=== PATIENT | male | born 1980 | race Two or more races ===

== ENCOUNTER 2025-03-07 22:42 | Inpatient (IN) | payer MEDICAID, MEDICARE ==
[~2025-03-07] VITALS: Ht 180.3 cm; Wt 87.6 kg
--- NOTE | 2025-03-07 23:24 | ED.PDOC ---
History of Present Illness HPI Comments 45 y/o M presents with c/o abdominal distension, with associated shortness of breath, and left foot pain. Patient is a poor historian. He reports a notable history of nonmedicated DM and HTN, fatty liver, and ESRD w/HD T//WED. Patient states on needing another 'tap' to his abdomen for 'fluids,' again, after last receiving one at [facility] 2 weeks ago, where they extracted 3.5L of ascites. He denies any abdominal pain, nausea, vomiting, diarrhea, urinary symptoms, chest pain, or further associated symptoms. Chief Complaint: Abdominal Pain Time Seen by MD: 23:00 Reviewed Notes: Nurses Notes, Medications, Allergies Allergies: Coded Allergies: Penicillins (Verified Allergy, Unknown, UNKNOWN, 03/08/25) Information Source: Patient Mode of Arrival: Wheelchair Severity: Moderate Timing: Hours Duration: Since onset Prehospital treatment: None Review of Systems: REVIEW OF SYSTEMS: No fever, no chills, or fatigue HEENT: No sore throat, no earache, no congestion, no neck pain. Cardiac: No chest pain. No palpitations. Lungs: Shortness of breath, no cough. GI: Abdominal distention. No nausea, no vomiting, no diarrhea, no constipation, no abdominal pain : No dysuria, frequency, or urgency. No hematuria. Musculoskeletal: Chronic left foot pain. No joint pain , no joint swelling, no extremity edema. Skin: No rash, no itching. Neuro: No headache, no dizziness, no weakness Vital Signs Vital Signs Date Time Temp Pulse Resp B/P (MAP) Pulse Ox O2 Delivery O2 Flow Rate FiO2 03/07/25 23:00 98.4 92 18 171/97 (121) 98 98.4 Physical Exam General: Awake, alert and oriented. No acute distress. Skin: Skin in warm, dry and intact. Appropriate color for ethnicity. HEENT: The head is normocephalic and atraumatic. Conjunctivae are clear without exudates or hemorrhage. Sclera is non-icteric. EOM are intact. No signs of nystagmus. Eyelids are normal in appearance without swelling or lesions. Oral mucosa is pink and moist Neck: The neck is supple with normal range of motion. No JVD. Cardiac: Heart rate and rhythm are normal. No murmurs, gallops, or rubs are auscultated. Respiratory: No signs of respiratory distress. Lung sounds are clear in all lobes bilaterally without rales, rhonchi, or wheezes. Abdominal: Abdomen is soft, non-tender without distention, guarding or rigidity. Bowel sounds are present and normoactive in all four quadrants. Extremities: Large callus on left lateral foot without surrounding erythema; tissues appeared necrotic. Otherwise, remaining upper and lower extremities are atraumatic in appearance without deformity or edema. Neurological: The patient is awake, alert and oriented to person, place, and time with normal speech. Speech is clear. There is no facial asymmetry. Psychiatric: Appropriate mood and affect. Good judgement and insight. Past Medical History PAST MEDICAL HISTORY: Anxiety, DM, ESRD (Hemodialysis on Wednesday, , and Wednesday), HTN, Liver (Fatty liver) Surgical History (Other): Cyst incision and drainage Testicular torsion related surgery Family History Family History: Unknown Social History Smoker: Non-Smoker Alcohol: Denies ETOH Use Drugs: Denies Drug Use Lives In: Home Was a procedure done? Was a procedure done?: No Differential Dx Considerations may include: Differential diagnoses considered include: Abdominal aortic aneurysm, MO, esophageal rupture, intestinal obstruction, mesenteric ischemia, perforated viscus or solid organ rupture, CHF with hepatomegaly, pneumonia, abscess, appendicitis, biliary disease, diverticulitis, gastritis, gastroenteritis, hepatitis, hernia, inflammatory bowel disease, pancreatitis, peptic ulcer disease, urinary tract infection, ureteral colic, constipation, GERD, irritable syndrome, abdominal wall pain, nonspecific abdominal pain, herpes zoster, nephrolithiasis. [ ]Also ruptured ectopic , ovarian torsion/cyst, tubo- ovarian abscess, PID, endometriosis, mittleschmerz. X-Ray, Labs, Meds, VS Vital Signs Date Time Temp Pulse Resp B/P (MAP) Pulse Ox O2 Delivery O2 Flow Rate FiO2 03/07/25 23:00 98.4 92 18 171/97 (121) 98 98.4 Lab Test 03/08/25 01:55 03/08/25 00:15 03/07/25 23:15 Range/Units Phosphorus Level 6.3 H 2.4-5.1 mg/dL Troponin I High Sensitivity 34 34 37 </=54 ng/L White Blood Count 7.2 4.4-10.8 10^3/uL Red Blood Count 4.10 L 4.5-5.90 10^6/uL Hemoglobin 10.2 L 13.5-17.5 g/dL Hematocrit 30.9 L 41.0-53.0 % Mean Corpuscular Volume 75.5 L 80.0-100.0 fL Mean Corpuscular Hemoglobin 24.8 L 28.0-32.0 pg Mean Corpuscular Hemoglobin Concent 32.8 32.0-36.0 g/dL Red Cell Distribution Width 16.8 H 11.8-14.3 % Platelet Count 188 140-450 10^3/uL Mean Platelet Volume 7.2 6.9-10.8 fL Neutrophils (%) (Auto) 65.4 37.0-80.0 % Lymphocytes (%) (Auto) 18.6 10.0-50.0 % Monocytes (%) (Auto) 12.2 H 0.0-12.0 % Eosinophils (%) (Auto) 2.9 0.0-7.0 % Basophils (%) (Auto) 0.9 0.0-2.0 % Neutrophils # (Auto) 4.7 1.6-8.6 10 ^3/uL Lymphocytes # (Auto) 1.3 0.4-5.4 10 ^3/uL Monocytes # (Auto) 0.9 0-1.3 10 ^3/uL Eosinophils # (Auto) 0.2 0-0.8 10 ^3/uL Basophils # (Auto) 0.1 0-0.2 10 ^3/uL Nucleated Red Blood Cells 0.0 % Prothrombin Time 13.2 H 9.3-11.8 sec Prothrombin Time INR 1.28 H 0.9-1.15 Sodium Level 143 136-145 mmol/L Potassium Level 5.1 3.5-5.1 mmol/L Chloride Level 98 98-107 mmol/L Carbon Dioxide Level 32 H 20-31 mmol/L Anion Gap 13 5-15 Blood Urea Nitrogen 67 H 9-23 mg/dL Creatinine 8.95 H 0.700-1.30 mg/dL Glomerular Filtration Rate Calc 7 >90 mL/min BUN/Creatinine Ratio 7.5 L 10.0-20.0 Serum Glucose 133 H 74-106 mg/dL Calcium Level 8.4 L 8.7-10.4 mg/dL Magnesium Level 2.5 1.6-2.6 mg/dL Total Bilirubin 0.6 0.2-1.0 mg/dL Aspartate Amino Transferase (AST) 13 13-40 U/L Alanine Aminotransferase (ALT) < 9 7-40 U/L Alkaline Phosphatase 108 46-116 U/L B-Type Natriuretic Peptide 1701.15 0-100 pg/mL Total Protein 7.5 5.7-8.2 g/dL Albumin 4.4 3.2-4.8 g/dL Lipase 52 12-53 U/L Time of 1ST Reevaluation: 23:30 Reevaluation 1ST: Unchanged Patient Education/Counseling: Diagnosis, Treatment Family Education/Counseling: No Family Present Departure 1 Departure Time of Disposition: 01:37 Impression: Primary Impression: Ascites Additional Impressions: Abdominal pain End stage renal disease on dialysis Disposition: ADMITTED INPATIENT Condition: Stable Comments 45-year-old male with end-stage renal disease on dialysis, cardiomegaly, ascites. We will admit for further evaluation including echocardiogram, IR paracentesis Critical Care Note Critical Care Time?: No Stability Stability form required: No Heart Score Heart Score: Heart Score Response (Comments) Value History N/A 0 EKG N/A 0 Age N/A 0 Risk Factors N/A 0 Troponin N/A 0 Total 0 I personally scribed for JOSE MCGRATH MD ([email or web address]) on 03/07/25 at 23:24. Electronically submitted by Paul Ledesma ([email or web address]). JOSE MCGRATH MD Mar 07, 2025 23:24
[2025-03-07 23:25] LABS: Basophils # (auto) 0.1 10 ^3/uL (0-0.2); Eosinophils # (auto) 0.2 10 ^3/uL (0-0.8); Hemoglobin 10.2 g/dL (13.5-17.5); Mean Corpuscular Hemoglobin 24.8 pg (28.0-32.0); Mean Corpuscular Hgb Conc. 32.8 g/dL (32.0-36.0); Neutrophils # (auto) 4.7 10 ^3/uL (1.6-8.6)
[2025-03-07 23:27] LABS: Basophils % (auto) 0.9 % (0.0-2.0); Eosinophils % (auto) 2.9 % (0.0-7.0); Hematocrit 30.9 % (41.0-53.0); Lymphocytes # (auto) 1.3 10 ^3/uL (0.4-5.4); Lymphocytes % (auto) 18.6 % (10.0-50.0); Mean Corpuscular Volume 75.5 fL (80.0-100.0); Monocytes # (auto) 0.9 10 ^3/uL (0-1.3); Monocytes % (auto) 12.2 % (0.0-12.0); Neutrophils % (auto) 65.4 % (37.0-80.0); Platelet Count (auto) 188 10^3/uL (140-450); Red Cell Distribution Width 16.8 % (11.8-14.3); White Blood Cell 7.2 10^3/uL (4.4-10.8)
--- NOTE | 2025-03-07 23:32 | DVH ---
EXAM: XY CHEST XRAY 1 VIEW CLINICAL HISTORY: Shortness of breath TECHNIQUE: Single AP view of the chest WID: COMPARISON: None FINDINGS: Lines and tubes: None Chest: Mild cardiomegaly and mild prominence of the pulmonary vasculature. No pleural effusion, pneumothorax, or consolidation. The osseous structures are grossly intact. IMPRESSION: Mild cardiomegaly and prominence of the pulmonary vasculature.
[2025-03-07 23:38] LABS: INR 1.28 (0.9-1.15); Prothrombin Time 13.2 sec (9.3-11.8)
[2025-03-07 23:40] LABS: Anion Gap 13 (5-15)
[2025-03-07 23:41] LABS: Calcium 8.4 mg/dL (8.7-10.4); Carbon Dioxide 32 mmol/L (20-31); Chloride 98 mmol/L (98-107); Potassium 5.1 mmol/L (3.5-5.1); Sodium 143 mmol/L (136-145)
[2025-03-07 23:46] LABS: Albumin 4.4 g/dL (3.2-4.8); Alkaline Phosphatase 108 U/L (46-116); BUN/Creatinine Ratio 7.5 (10.0-20.0); Magnesium 2.5 mg/dL (1.6-2.6); Total Protein 7.5 g/dL (5.7-8.2)
[2025-03-07 23:47] LABS: Alanine Aminotransferase < 9 U/L (7-40); Aspartate Aminotransferase 13 U/L (13-40); Bilirubin, Total 0.6 mg/dL (0.2-1.0); Blood Urea Nitrogen 67 mg/dL (9-23); Glucose 133 mg/dL (74-106)
[2025-03-08 00:09] LABS: Lipase 52 U/L (12-53)
--- NOTE | 2025-03-08 00:46 | DVH ---
INDICATION: Abdominal pain, rule out ascites, rule out cirrhosis TECHNIQUE: Multiple real-time sonographic images were obtained of the right upper quadrant. COMPARISON: None FINDINGS: The liver demonstrates diffusely echogenic and coarsened echotexture without focal mass les ions. The liver measures 20.6 cm. Normal hepatopetal portal flow identified. No evidence of pleural e ffusion. Abdominal ascites. There is no intrahepatic or extrahepatic ductal dilatation. The common duct measures 0.4 cm. The gallbladder is without evidence of stone or sludge. Probable gallbladder polyp. The gallbladder w all measures 0.3 cm and is within normal limits. Negative sonographic bills's sign. The right kidney measures 8.5 cm. The right kidney is normal in contour, size, and shape. The echogen icity is normal. There is no hydronephrosis. The pancreas is not well visualized due to overlying bowel gas. IMPRESSION: 1. Hepatomegaly and hepatic steatosis. 2. Probable gallbladder polyp. 3. Ascites.
[2025-03-08] MEDS ORDERED: NITROGLYCERIN 0.4 MG SL TAB SL PRN (04:00)
[2025-03-08] MEDS ORDERED: MORPHINE SULFATE INJ 2 MG/ml SYRG IV PRN (04:00)
[2025-03-08 04:10] VITALS: PULSE 82; RESP 14; O2SAT 98
[2025-03-08] MEDS: PANTOPRAZOLE 40 MG/10 ML VIAL INJ IV ONE (05:52)
[2025-03-08] MEDS: CARVEDILOL 3.125 MG TAB PO ONE (05:52)
--- NOTE | 2025-03-08 06:19 | DVHHPRES ---
History of Present Illness Resident Creating Document: MOMO WOLFF RESIDENT History of Present Illness Patient is a 45-year-old male with a past medical history of end-stage renal disease on dialysis (Wednesday at [facility] dialysis), hypertension, fatty liver presented to the ED with a chief complaint of abdom inal distention. Patient reports he had massive abdominal distention which was drained about 2-1/2 weeks ago at [facility] following which he was discharged. He reports the abdominal distention started area, radiating but now he wanted to get earlier evaluation so that he does not reach a point where he feels short of breath. Patient denied any chest pain. Reported mild shortness of breath but he is saturating more than 95% on room air. Past medical history: As per HPI Past surgical history: Testicular surgery, cyst incision and drainage Social history: Patient denies smoking, alcohol, drug use and lives at home Home medications: Hydralazine 25 t.i.d. with the patient is not taking, carvedilol 6.25 mg b.i.d., sevelamer Review of Systems Review of Systems Patient seen and examined at the bedside Denies any chest pain, abdominal pain, nausea or vomiting Reports shortness of breath minimal Allergies: Coded Allergies: Penicillins (Verified Allergy, Unknown, UNKNOWN, 03/08/25) Medications Current Medications Medications Dose Ordered Sig/Kaylie Route Start Time Stop Time Status Last Admin Dose Admin Morphine Sulfate 2 mg Q30M PRN IV 03/08/25 04:00 Nitroglycerin 0.4 mg Q5MINP PRN SL 03/08/25 04:00 Carvedilol 6.25 mg Q12HR PO 03/08/25 10:00 Pantoprazole Sodium 40 mg DAILY IV 03/09/25 10:00 Sevelamer HCl 1,600 mg TIDWM PO 03/08/25 08:00 Exam Vital Signs Vital Signs Date Time Temp Pulse Resp B/P (MAP) Pulse Ox O2 Delivery O2 Flow Rate FiO2 03/08/25 04:10 82 14 98 Room Air* 0 21 21 03/08/25 04:09 98.3 164/93 (116) 98.3 Exam Gen - mild conjunctival pallor, no icterus, no cyanosis, no clubbing, no LAD, no edema . Skin - Patients skin is warm and dry. HEENT - normocephalic, atraumatic, moist mucous membranes. Neck - full ROM, no LAD, no JVD Pulmonary - B/L equal breath sounds, no crackles, no wheezing, no stridor. cardiovascular - regular S1,S2 heard, no added sounds, no murmurs heard. peripheral pulses normal radial 2+, pedal 2+. capillary refill normal <2 secs. GI - soft, nontender abdomen, no guarding or rebound tenderness. no hepatospleenomegaly. Bowel sounds normoactive. Positive shifting dullness Neurological - Patient is A/O X 3 . Bilateral upper extremity strength 5/5, bilateral lower extremity strength 5/5, no facial droop, normal speech, no tremor, no sensory deficiets. Labs/Xrays Labs Test 03/08/25 01:55 03/07/25 23:15 Range/Units Phosphorus Level 6.3 H 2.4-5.1 mg/dL Troponin I High Sensitivity 34 </=54 ng/L White Blood Count 7.2 4.4-10.8 10^3/uL Red Blood Count 4.10 L 4.5-5.90 10^6/uL Hemoglobin 10.2 L 13.5-17.5 g/dL Hematocrit 30.9 L 41.0-53.0 % Mean Corpuscular Volume 75.5 L 80.0-100.0 fL Mean Corpuscular Hemoglobin 24.8 L 28.0-32.0 pg Mean Corpuscular Hemoglobin Concent 32.8 32.0-36.0 g/dL Red Cell Distribution Width 16.8 H 11.8-14.3 % Platelet Count 188 140-450 10^3/uL Mean Platelet Volume 7.2 6.9-10.8 fL Neutrophils (%) (Auto) 65.4 37.0-80.0 % Lymphocytes (%) (Auto) 18.6 10.0-50.0 % Monocytes (%) (Auto) 12.2 H 0.0-12.0 % Eosinophils (%) (Auto) 2.9 0.0-7.0 % Basophils (%) (Auto) 0.9 0.0-2.0 % Neutrophils # (Auto) 4.7 1.6-8.6 10 ^3/uL Lymphocytes # (Auto) 1.3 0.4-5.4 10 ^3/uL Monocytes # (Auto) 0.9 0-1.3 10 ^3/uL Eosinophils # (Auto) 0.2 0-0.8 10 ^3/uL Basophils # (Auto) 0.1 0-0.2 10 ^3/uL Nucleated Red Blood Cells 0.0 % Prothrombin Time 13.2 H 9.3-11.8 sec Prothrombin Time INR 1.28 H 0.9-1.15 Sodium Level 143 136-145 mmol/L Potassium Level 5.1 3.5-5.1 mmol/L Chloride Level 98 98-107 mmol/L Carbon Dioxide Level 32 H 20-31 mmol/L Anion Gap 13 5-15 Blood Urea Nitrogen 67 H 9-23 mg/dL Creatinine 8.95 H 0.700-1.30 mg/dL Glomerular Filtration Rate Calc 7 >90 mL/min BUN/Creatinine Ratio 7.5 L 10.0-20.0 Serum Glucose 133 H 74-106 mg/dL Calcium Level 8.4 L 8.7-10.4 mg/dL Magnesium Level 2.5 1.6-2.6 mg/dL Total Bilirubin 0.6 0.2-1.0 mg/dL Aspartate Amino Transferase (AST) 13 13-40 U/L Alanine Aminotransferase (ALT) < 9 7-40 U/L Alkaline Phosphatase 108 46-116 U/L B-Type Natriuretic Peptide 1701.15 0-100 pg/mL Total Protein 7.5 5.7-8.2 g/dL Albumin 4.4 3.2-4.8 g/dL Lipase 52 12-53 U/L Assessment/Plan Assessment/Plan Acute abdominal pain Mild abdominal ascites Hepatic steatosis and hepatomegaly Coagulopathy - abdominal ultrasound shows hepatomegaly and hepatic steatosis with a normal hepatopetal portal blood flow, abdominal ascites is seen - liver function tests normal - as patient currently does not have any symptoms of shortness of breaths, might not need drainage - SBP less likely from physical exam and patient does not have any fever End-stage renal disease on hemodialysis Hyperphosphatemia Microcytic hypochromic anemia likely due to CKD - consulted Dr. Jeaneth quiñonez - patient gets dialysis on Wednesday - sevelamer 1600 mg t.i.d Hypertensive heart disease with possible diastolic heart failure - on carvedilol 6.25 b.i.d. - at home patient is also on 25 mg hydralazine t.i.d. which he was not taking in the last few weeks - chest x-ray shows mild cardiomegaly with pulmonary vascular congestion PUD prophylaxis: Protonix DVT prophylaxis: Currently held Goals of care discussed with the patient for over 27 minutes. Full code Time spent: 41 minutes Plan discussed with Dr. Martinez Plan discussed with: Patient My Orders Orders - MOMO WOLFF Procedure Category Date Status Time Admit ADMIT 03/08/25 Transmitted 03:55 Morphine Sulfate PHA 03/08/25 In Process Injection 04:00 Oxygen By Nasal RT 03/08/25 Transmitted Cannula 03:55 Stat Ekg For Chest CR 03/08/25 In Process Pain 03:55 Notify Md Of Changes CR 03/08/25 In Process From Base 03:55 Personal Trainer For CR 03/08/25 In Process 24 Hours 03:55 Emergency Dysrhythmia CR 03/08/25 In Process Protocol 03:55 Nitroglycerin PHA 03/08/25 In Process Sublingual (Ntrostat 04:00 Rhythm Strips Once CR 03/08/25 In Process Every Shift 03:55 Carvedilol Tablet PHA 03/08/25 In Process (Coreg Tablet) 10:00 *Dr. Jeaneth Quiñonez -Da CONS 03/08/25 Transmitted Ita 03:55 Pantoprazole PHA 03/09/25 In Process (Protonix) 10:00 Complete Blood Count LAB 03/08/25 Logged 06:00 Basic Metabolic Panel LAB 03/08/25 Logged 06:00 Sevelamer (Renagel) PHA 03/08/25 In Process 08:00 Date of Service: Mar 08, 2025 Billing Provider: REN MARTINEZ MD Common Visit Codes: [id number] INP/OBS CARE (HIGH) Secondary Visit Codes: [id number] CARE PLAN 30 MINUTES MOMO WOLFF RESIDENT Mar 08, 2025 06:19
[2025-03-08 06:56] LABS: Anion Gap 15 (5-15); Carbon Dioxide 26 mmol/L (20-31); Potassium 4.5 mmol/L (3.5-5.1); Sodium 139 mmol/L (136-145)
[2025-03-08 06:59] LABS: Chloride 98 mmol/L (98-107)
[2025-03-08 07:02] LABS: BUN/Creatinine Ratio 6.8 (10.0-20.0)
[2025-03-08 07:03] LABS: Blood Urea Nitrogen 64 mg/dL (9-23); Glucose 121 mg/dL (74-106)
[2025-03-08 07:05] LABS: % Iron Saturation 9.1 % (20-55)
[2025-03-08 07:06] LABS: Basophils # (auto) 0 10 ^3/uL (0-0.2); Basophils % (auto) 0.7 % (0.0-2.0); Eosinophils # (auto) 0.3 10 ^3/uL (0-0.8); Eosinophils % (auto) 4.3 % (0.0-7.0); Hematocrit 31.4 % (41.0-53.0); Hemoglobin 10.2 g/dL (13.5-17.5); Lymphocytes # (auto) 1.5 10 ^3/uL (0.4-5.4); Lymphocytes % (auto) 22.3 % (10.0-50.0); Mean Corpuscular Hemoglobin 24.5 pg (28.0-32.0); Mean Corpuscular Hgb Conc. 32.4 g/dL (32.0-36.0); Mean Corpuscular Volume 75.6 fL (80.0-100.0); Monocytes # (auto) 0.7 10 ^3/uL (0-1.3); Neutrophils # (auto) 4.2 10 ^3/uL (1.6-8.6); Neutrophils % (auto) 61.7 % (37.0-80.0); Nucleated Red Blood Cells % 0.1 %; Platelet Count (auto) 170 10^3/uL (140-450); Red Blood Cells 4.16 10^6/uL (4.5-5.90); White Blood Cell 6.8 10^3/uL (4.4-10.8)
[2025-03-08 08:28] VITALS: BP 154/92; PULSE 77; RESP 11; TEMP 98; O2SAT 97
[2025-03-08] MEDS: SEVELAMER 800 MG TAB PO SCH (08:59)
[2025-03-08] MEDS: CARVEDILOL 3.125 MG TAB PO SCH (09:00)
[2025-03-08 13:00] VITALS: BP 147/87; PULSE 71; RESP 11; TEMP 98.1; O2SAT 96
[2025-03-08 17:18] VITALS: BP 149/97; PULSE 72; RESP 18; TEMP 97.3; O2SAT 100
[2025-03-08 20:00] VITALS: PULSE 74; RESP 19; O2SAT 100
--- NOTE | 2025-03-08 20:27 | DVHINCON2 ---
DATE OF CONSULTATION: 03/08/2025 CONSULTING PHYSICIAN: Dr. Kasper. REASON FOR CONSULTATION: Management of dialysis. HISTORY OF PRESENT ILLNESS: The patient comes to the emergency room complaining of worsening fluid retention in the abdomen. He is one of our chronic dialysis patients who undergoes treatments on Wednesday, , and Wednesday. He did not go for his dialysis today. He says that a few weeks ago, he had a large volume paracentesis at another hospital. This time, he has been developing reaccumulation of the fluid and he is starting to feel short of breath, so he decided to come to the hospital. He is being admitted for paracentesis and Gastroenterology evaluation. I am being consulted to handle the dialysis treatment. REVIEW OF SYSTEMS: Otherwise unremarkable. PAST MEDICAL HISTORY: As stated above, significant for liver disease, fatty liver, possibly cirrhosis with ascites. He has a history of end-stage renal disease, anemia, hyperparathyroidism. MEDICATIONS AT HOME: Included hydralazine, carvedilol, sevelamer. SOCIAL HISTORY: The patient denies smoking cigarettes or drinking alcohol. FAMILY HISTORY: Noncontributory. PHYSICAL EXAMINATION: VITAL SIGNS: Blood pressure is 149/97, heart rate 72, respirations 18, temperature 97.3. GENERAL: The patient is an adult gentleman who appears to be chronically ill, in no acute distress. Alert and oriented x 3. HEENT: Unremarkable. NECK: No jugular venous distention. No palpable thyroid or lymphadenopathy. LUNGS: Clear to auscultation. CARDIOVASCULAR: Reveals regular rate. There is 2/6 systolic murmur in all auscultatory areas. ABDOMEN: Soft, distended. There is ascites. I could not palpate organomegaly. EXTREMITIES: Show no clubbing, cyanosis, no edema. NEUROLOGIC: Nonfocal. LABORATORY FINDINGS: His sodium is 139, potassium 4.5, bicarbonate 26, BUN 64, creatinine 9, hemoglobin 10.2. ASSESSMENT AND PLAN: * End-stage renal disease with no electrolyte imbalances. * Anemia of renal disease. Hemoglobin is at target range. * Hypertension. Blood pressure seems to be relatively well controlled. * Recurrent ascites. Plan is to do a therapeutic and diagnostic paracentesis. I will schedule his dialysis treatment for tomorrow. We will follow him closely. Thank you for the consultation. MD MOR Alexander/LESLY TID: [id number] RECEIPT: [id number]
[2025-03-08 21:00] VITALS: BP 154/96; PULSE 78; RESP 19; TEMP 97.7; O2SAT 100
--- NOTE | 2025-03-08 21:13 | DVHPNRES ---
Progress Note Date Seen: Mar 08, 2025 Resident Creating Document: TEA LOPEZ RESDIENT Medical Necessity Reason Pt with a Central, PICC or Fol: No Subjective Review of Systems Patient is a 45-year-old male with a past medical history of end-stage renal disease on dialysis (Wednesday at [facility] dialysis), hypertension, fatty liver presented to the ED with a chief complaint of abdominal distention. Patient reports he had massive abdominal distention which was drained about 2-1/2 weeks ago at [facility] following which he was discharged. He reports the abdominal distention started area, radiating but now he wanted to get earlier evaluation so that he does not reach a point where he feels short of breath. Patient denied any chest pain. Reported mild shortness of breath but he is saturating more than 95% on room air. Past medical history: As per HPI Past surgical history: Testicular surgery, cyst incision and drainage Social history: Patient denies smoking, alcohol, drug use and lives at home Home medications: Hydralazine 25 t.i.d. with the patient is not taking, carvedilol 6.25 mg b.i.d., sevelamer Patient seen and examined at the bedside. Patient is still complaining of abdominal discomfort, shortness of bed, and mild case discomfort 8 Patient reports: No new complaints, Feels better Changes from previous H/P or p: Changes Objective vital signs Vital Sign Date Time Temp Pulse Resp B/P (MAP) Pulse Ox O2 Delivery O2 Flow Rate FiO2 03/08/25 17:18 97.3 72 18 149/97 (114) 100 97.3 03/08/25 16:20 Room Air* 0 21 medications Current Medications Medications Dose Ordered Sig/Kaylie Route Start Time Stop Time Status Last Admin Dose Admin Carvedilol 6.25 mg Q12HR PO 03/08/25 10:00 03/08/25 09:00 6.25 MG Pantoprazole Sodium 40 mg DAILY IV 03/09/25 10:00 Sevelamer HCl 1,600 mg TIDWM PO 03/08/25 08:00 03/08/25 17:55 1,600 MG Examination General Appearance: Alert, Oriented X3, Cooperative, No acute distress HEENT: Atraumatic, PERRLA, EOMI, Mucous membrane moist/pink Respiratory: Bilateral lower zone crackles Cardiovascular: Distended abdomen, with positive shifting dullness Abdominal: Normal bowel sounds, Soft, No tenderness, No hepatospenomegaly, No masses Extremities: No clubbing, No cyanosis, No edema, Normal pulses, No tenderness/swelling Skin: No rashes, No breakdown, No significant lesion Neuro: Normal gait, Normal speech, Strength at 5/5 X4 ext, Normal tone, Sensation intact, Cranial nerves 3-12 NL, Reflexes 2+ Psych/Mental Status: Mental status NL, Mood NL laboratory and microbiology Laboratory Tests 03/08/25 06:10 Test 03/08/25 06:10 Range/Units Serum Glucose 121 H 74-106 mg/dL Labs and/or images reviewed: Labs reviewed by me, Image(s) reviewed by me Problem List/Assessment/Plan Problem List/Assessment/Plan Acute on chronic systolic heart failure, likely due to volume/ESRD ESRD, on maintenance hemodialysis (Tuesdays//Wednesday) Diabetes type 2 Mild anemia, likely due to ESRD * EKGs shows, normal sinus is T-wave T-wave changes * ultrasound shows hepatomegaly hepatic steatosis, ascites Plan/recommendation: Consulted nephrology, for dialysis Continue Protonix, carvedilol, and sevelamer Telemetry DIET: Renal diet DVT PROPHYLAXIS: Heparin CODE STATUS: Goal of care discussed for more than 18 minutes, full code DISPOSITION: Telemetry Patient's status and plan discussed with the patient. Case discussed with Dr. Alcaraz. Plan discussed with: Patient, Other My Orders My Orders Orders - TEA LOPEZ Procedure Category Date Status Time Electrocardigram EKG 03/08/25 Logged 09:16 Renal Specific DIET 03/08/25 Transmitted Diet(Renal) Lunch Drug Screen LAB 03/08/25 Logged 11:13 Date of Service: Mar 08, 2025 Billing Provider: YANDEL ALCARAZ MD Common Visit Codes: [id number] INP/OBS CARE(HIGH) TEA LOPEZ RESDIENT Mar 08, 2025 21:13 YANDEL ALCARAZ MD Mar 13, 2025 20:46
[2025-03-09] VITALS (10 sets, daily range): BP systolic 125–159; BP diastolic 79–97; PULSE 71–80; RESP 16–20; TEMP 97.5–98.2; O2SAT 97–100
[2025-03-09 07:18] LABS: Anion Gap 14 (5-15); Carbon Dioxide 27 mmol/L (20-31); Sodium 137 mmol/L (136-145)
[2025-03-09 07:19] LABS: Basophils # (auto) 0 10 ^3/uL (0-0.2); Basophils % (auto) 0.8 % (0.0-2.0); Eosinophils # (auto) 0.3 10 ^3/uL (0-0.8); Eosinophils % (auto) 4.6 % (0.0-7.0); Hematocrit 29.8 % (41.0-53.0); Hemoglobin 9.9 g/dL (13.5-17.5); Lymphocytes # (auto) 1.1 10 ^3/uL (0.4-5.4); Mean Corpuscular Hemoglobin 24.9 pg (28.0-32.0); Neutrophils % (auto) 65.1 % (37.0-80.0); Red Blood Cells 3.98 10^6/uL (4.5-5.90)
[2025-03-09 07:21] LABS: Lymphocytes % (auto) 18.8 % (10.0-50.0); Mean Corpuscular Hgb Conc. 33.3 g/dL (32.0-36.0); Mean Corpuscular Volume 74.9 fL (80.0-100.0); Monocytes # (auto) 0.6 10 ^3/uL (0-1.3); Monocytes % (auto) 10.7 % (0.0-12.0); Neutrophils # (auto) 3.8 10 ^3/uL (1.6-8.6); Platelet Count (auto) 164 10^3/uL (140-450); Red Cell Distribution Width 16.5 % (11.8-14.3); White Blood Cell 5.9 10^3/uL (4.4-10.8)
[2025-03-09 07:24] LABS: BUN/Creatinine Ratio 7.9 (10.0-20.0)
[2025-03-09 07:45] LABS: Blood Urea Nitrogen 92 mg/dL (9-23); Chloride 96 mmol/L (98-107); Glucose 117 mg/dL (74-106); Potassium 5.7 mmol/L (3.5-5.1)
[2025-03-09 08:21] LABS: Urine Bacteria None Seen /hpf (None Seen); Urine Blood TRACE /uL (Negative); Urine Clarity Clear (Clear); Urine Color Light-Yellow (Yellow); Urine Protein, UAD 3+ (Negative); Urine Specific Gravity 1.012 (1.001-1.035); Urine Squamous Epithelial Cell FEW /hpf (<5); Urine Urobilinogen Normal (Negative); Urine WBC 1 /HPF (0-3)
[2025-03-09 08:30] LABS: Amphetamine Screen, Urine Neg (NEGATIVE); Barbiturate Scree,Urine Neg (NEGATIVE); Benzodiazephine Screen, Urine Neg (NEGATIVE); Cannabinoid Screen, Urine Neg (NEGATIVE); Cocaine Screen, Urine Neg (NEGATIVE); Opiate Scree,Urine Neg (NEGATIVE); Phencyclidine Screen, Urine Neg (NEGATIVE)
[2025-03-09] MEDS: PANTOPRAZOLE 40 MG/10 ML VIAL INJ IV SCH (10:00)
[2025-03-09] MEDS: FUROSEMIDE 40 MG/4 ML VIAL IV ONE (10:07)
[2025-03-09] MEDS: CALCIUM GLUC 1,000mg/50ml-NS 50 ML IV ONE (10:09)
[2025-03-09] MEDS: SODIUM ZIRCONIUM CYCL 10 GM PAK PO ONE (10:10)
--- NOTE | 2025-03-09 10:20 | DVHPN2 ---
Progress Note - Dictate Date Seen: Mar 09, 2025 Has the PT tested + for MRSA If YES, has PT been informed?: No Medical Necessity Reason Pt with a Central, PICC or Fol: No Subjective Feels weak No new complaints vital signs Vital Sign Date Time Temp Pulse Resp B/P (MAP) Pulse Ox O2 Delivery O2 Flow Rate FiO2 03/09/25 10:07 152/87 03/09/25 09:19 98.2 72 18 99 98.2 03/08/25 20:00 Room Air* 0 21 Total Intake and Output 03/08/25 03/08/25 03/09/25 15:00 23:00 07:00 Intake Total 118 ml 900 ml Balance 118 ml 900 ml medications Current Medications Medications Dose Ordered Sig/Kaylie Route Start Time Stop Time Status Last Admin Dose Admin Carvedilol 6.25 mg Q12HR PO 03/08/25 10:00 03/08/25 21:41 6.25 MG Pantoprazole Sodium 40 mg DAILY IV 03/09/25 10:00 Sevelamer HCl 1,600 mg TIDWM PO 03/08/25 08:00 03/08/25 17:55 1,600 MG objective GENERAL: The patient is an adult gentleman who appears to be chronically ill, in no acute distress. Alert and oriented x 3. HEENT: Unremarkable. NECK: No jugular venous distention. No palpable thyroid or lymphadenopathy. LUNGS: Clear to auscultation. CARDIOVASCULAR: Reveals regular rate. There is 2/6 systolic murmur in all auscultatory areas. ABDOMEN: Soft, distended. There is ascites. I could not palpate organomegaly. EXTREMITIES: Show no clubbing, cyanosis, no edema. NEUROLOGIC: Nonfocal. laboratory and microbiology Laboratory Tests 03/09/25 06:02 Test 03/09/25 06:02 Range/Units Serum Glucose 117 H 74-106 mg/dL Problem List ASSESSMENT AND PLAN: * End-stage renal disease with no electrolyte imbalances. * Anemia of renal disease. Hemoglobin is at target range. * Hypertension. Blood pressure seems to be relatively well controlled. * Recurrent ascites. Plan is to do a therapeutic and diagnostic paracentesis. HD today Plan discussed with: Patient NYDIA CATES MD Mar 09, 2025 10:20
[2025-03-09] MEDS: ALBUTEROL SULF 2.5 MG/0.5ML(0.5%) NEB SOLN NEB ONE (10:33)
[2025-03-09] MEDS: SODIUM CHL 0.9% 1000 ML BAG XX ONE (17:22)
--- NOTE | 2025-03-09 21:44 | DVHPNRES ---
Progress Note Date Seen: Mar 10, 2025 Resident Creating Document: TEA LOPEZ LINDA Has the PT tested + for MRSA If YES, has PT been informed?: No Medical Necessity Reason Pt with a Central, PICC or Fol: No Subjective Review of Systems Patient seen and examined at the bedside. Patient is feeling better since admission. Objective vital signs Vital Sign Date Time Temp Pulse Resp B/P (MAP) Pulse Ox O2 Delivery O2 Flow Rate FiO2 03/09/25 21:29 97.9 80 18 159/97 (117) 99 97.9 03/09/25 10:34 Room Air* 0 21 Total Intake and Output 03/08/25 03/08/25 03/09/25 15:00 23:00 07:00 Intake Total 118 ml 900 ml Balance 118 ml 900 ml medications Current Medications Medications Dose Ordered Sig/Kaylie Route Start Time Stop Time Status Last Admin Dose Admin Carvedilol 6.25 mg Q12HR PO 03/08/25 10:00 03/08/25 21:41 6.25 MG Pantoprazole Sodium 40 mg DAILY IV 03/09/25 10:00 Sevelamer HCl 1,600 mg TIDWM PO 03/08/25 08:00 03/08/25 17:55 1,600 MG Examination General Appearance: Alert, Oriented X3, Cooperative, No acute distress HEENT: Atraumatic, PERRLA, EOMI, Mucous membrane moist/pink Respiratory: Bilateral lower zone crackles Cardiovascular: Distended abdomen, with positive shifting dullness Abdominal: Normal bowel sounds, Soft, No tenderness, No hepatospenomegaly, No masses Extremities: No clubbing, No cyanosis, No edema, Normal pulses, No tenderness/swelling Skin: No rashes, No breakdown, No significant lesion Neuro: Normal gait, Normal speech, Strength at 5/5 X4 ext, Normal tone, Sensation intact, Cranial nerves 3-12 NL, Reflexes 2+ Psych/Mental Status: Mental status NL, Mood NL laboratory and microbiology Laboratory Tests 03/09/25 06:02 Test 03/09/25 06:02 Range/Units Serum Glucose 117 H 74-106 mg/dL Labs and/or images reviewed: Labs reviewed by me, Image(s) reviewed by me Problem List/Assessment/Plan Problem List/Assessment/Plan Acute on chronic systolic heart failure, likely due to volume/ESRD ESRD, on maintenance hemodialysis (Tuesdays//Wednesday) Diabetes type 2 Mild anemia, likely due to ESRD * EKGs shows, normal sinus is T-wave T-wave changes * ultrasound shows hepatomegaly hepatic steatosis, ascites Plan/recommendation: Consulted nephrology, performed dialysis today, taken out 3.5 L Paracentesis performed, drain 250 mL Continue Protonix, carvedilol, and sevelamer Telemetry DIET: Renal diet DVT PROPHYLAXIS: Heparin CODE STATUS: Goal of care discussed for more than 18 minutes, full code DISPOSITION: Telemetry Patient's status and plan discussed with the patient. Case discussed with Dr. Alcaraz. Plan discussed with: Patient, Other (RN) My Orders My Orders Orders - TEA LOPEZ Procedure Category Date Status Time Apply: [facility] 03/09/25 In Process 11:24 Date of Service: Mar 10, 2025 Billing Provider: YANDEL ALCARAZ MD Common Visit Codes: [id number] INP/OBS CARE(HIGH) TEA LOPEZ RESDIFERCHO Mar 09, 2025 21:44 YANDEL ALCARAZ MD Mar 13, 2025 21:02
[2025-03-10] VITALS (9 sets, daily range): BP systolic 124–160; BP diastolic 65–98; PULSE 71–76; RESP 16–18; TEMP 36.6; O2SAT 97–99
--- NOTE | 2025-03-10 00:40 | DVHDSRES ---
Discharge Summary Date of Admission Resident Creating Document: TEA LOPEZ RESDIENT Mar 08, 2025 at 03:55 Date of Discharge: Mar 10, 2025 Labs/Diagnostic Data: Laboratory Results Test 03/09/25 07:45 03/09/25 07:05 03/09/25 06:02 03/08/25 06:10 Urine Color Light-yellow (Yellow) Urine Clarity Clear (Clear) Urine pH 8.0 (5.0-9.0) Urine Specific [place] 1.012 (1.001-1.035) Urine Protein 3+ (Negative) Urine Ketones Negative (Negative) Urine Blood Trace /uL (Negative) Urine Nitrite Negative (Negative) Urine Bilirubin Negative (Negative) Urine Urobilinogen Normal mg/dL (Negative) Urine Leukocyte Esterase Negative /uL (Negative) Urine RBC 2 /hpf (0 - 3) Urine Microscopic WBC 1 /HPF (0-3) Urine Squamous Epithelial Cells Few /hpf (<5) Urine Bacteria None seen /hpf (None Seen) Urine Glucose 3+ mg/dL (Normal) Urine Opiates Screen Neg (NEGATIVE) Urine Fentanyl Screen Neg (NEGATIVE) Urine Barbiturates Screen Neg (NEGATIVE) Urine Phencyclidine Screen Neg (NEGATIVE) Urine Amphetamines Screen Neg (NEGATIVE) Urine Benzodiazepines Screen Neg (NEGATIVE) Urine Cocaine Screen Neg (NEGATIVE) Urine Cannabinoids Screen Neg (NEGATIVE) White Blood Count 5.9 10^3/uL (4.4-10.8) Red Blood Count 3.98 10^6/uL (4.5-5.90) Hemoglobin 9.9 g/dL (13.5-17.5) Hematocrit 29.8 % (41.0-53.0) Mean Corpuscular Volume 74.9 fL (80.0-100.0) Mean Corpuscular Hemoglobin 24.9 pg (28.0-32.0) Mean Corpuscular Hemoglobin Concent 33.3 g/dL (32.0-36.0) Red Cell Distribution Width 16.5 % (11.8-14.3) Platelet Count 164 10^3/uL (140-450) Mean Platelet Volume 7.6 fL (6.9-10.8) Neutrophils (%) (Auto) 65.1 % (37.0-80.0) Lymphocytes (%) (Auto) 18.8 % (10.0-50.0) Monocytes (%) (Auto) 10.7 % (0.0-12.0) Eosinophils (%) (Auto) 4.6 % (0.0-7.0) Basophils (%) (Auto) 0.8 % (0.0-2.0) Neutrophils # (Auto) 3.8 10 ^3/uL (1.6-8.6) Lymphocytes # (Auto) 1.1 10 ^3/uL (0.4-5.4) Monocytes # (Auto) 0.6 10 ^3/uL (0-1.3) Eosinophils # (Auto) 0.3 10 ^3/uL (0-0.8) Basophils # (Auto) 0 10 ^3/uL (0-0.2) Nucleated Red Blood Cells 0.0 % Sodium Level 137 mmol/L (136-145) Potassium Level 5.7 mmol/L (3.5-5.1) Chloride Level 96 mmol/L (98-107) Carbon Dioxide Level 27 mmol/L (20-31) Anion Gap 14 (5-15) Blood Urea Nitrogen 92 mg/dL (9-23) Creatinine 11.69 mg/dL (0.700-1.30) Glomerular Filtration Rate Calc 5 mL/min (>90) BUN/Creatinine Ratio 7.9 (10.0-20.0) Serum Glucose 117 mg/dL (74-106) Calcium Level 8.0 mg/dL (8.7-10.4) Iron Level 30 ug/dL (65-175) Total Iron Binding Capacity 330 ug/dL (250-425) Percent Iron Saturation 9.1 % (20-55) Ferritin 28.1 ng/mL (22-322) Test 03/08/25 01:55 03/07/25 23:15 Phosphorus Level 6.3 mg/dL (2.4-5.1) Troponin I High Sensitivity 34 ng/L (</=54) Prothrombin Time 13.2 sec (9.3-11.8) Prothrombin Time INR 1.28 (0.9-1.15) Magnesium Level 2.5 mg/dL (1.6-2.6) Total Bilirubin 0.6 mg/dL (0.2-1.0) Aspartate Amino Transferase (AST) 13 U/L (13-40) Alanine Aminotransferase (ALT) < 9 U/L (7-40) Alkaline Phosphatase 108 U/L (46-116) B-Type Natriuretic Peptide 1701.15 pg/mL (0-100) Total Protein 7.5 g/dL (5.7-8.2) Albumin 4.4 g/dL (3.2-4.8) Lipase 52 U/L (12-53) Other Laboratory Tests 03/09/25 06:02 Brief Hx & Hospital Course: Patient is a 45-year-old male with a past medical history of end-stage renal disease on dialysis (Wednesday at [facility]), hypertension, fatty liver presented to the ED with a chief complaint of abdominal distention. Patient reports he had massive abdominal distention which was drained about 2-1/2 weeks ago at [facility] following which he was discharged. He reports the abdominal distention started area, radiating but now he wanted to get earlier evaluation so that he does not reach a point where he feels short of breath. Patient denied any chest pain. Reported mild shortness of breath but he is saturating more than 95% on room air. Past medical history: As per HPI Past surgical history: Testicular surgery, cyst incision and drainage Social history: Patient denies smoking, alcohol, drug use and lives at home Home medications: Hydralazine 25 t.i.d. with the patient is not taking, carvedilol 6.25 mg b.i.d., sevelamer Hospital course: Patient was admitted at the line of possible systolic heart failure and volume overload/ascites. Nephrology consulted, performed the analysis and took out 3.5 L. ultrasound mediated paracentesis performed, and drained 250 mL. Home medication including sevelamer and carvedilol were continued during hospitalization. During hospital course electrolyte abnormalities/hypokalemia were treated medically. On 03/10/2025, the patient was feeling better since admission. Abdominal discomfort, shortness of breaths and chest discomfort improved. Discharge plan discussed with the patient and discharged home. Discharge plan: Follow up with the PCP within 1 week of the discharge Follow up with the Nephrology and maintenance hemodialysis Continue home meds Condition at Discharge: Good Final Diagnosis/Problems List Possible Acute systolic heart failure, likely due to volume/ESRD ESRD, on maintenance hemodialysis (Tuesdays//Wednesday) Diabetes type 2 Mild anemia, likely due to ESRD Recurrent ascites, likely due to ESRD Hypertension Hyperphosphatemia Discharge Statement: "Patient was advised to return to the ER or call 911 if any headaches, dizziness, shortness of breath, chest pain, abdominal pain, bleeding, fevers, or worsening of medical condition. Patient was counseled about treatment plan, medications, possible side effects, patientverbalized understanding. All questions were answered to the best of my ability. This discharge took greater then 30 minutes in planning, reviewing documentation, counseling the patient, and discussing with other team members." ASSESSMENT ASSESSMENT Assessment TEA LOPEZ RESDIENT Mar 10, 2025 00:40
[2025-03-10 07:04] LABS: Basophils # (auto) 0 10 ^3/uL (0-0.2); Basophils % (auto) 0.7 % (0.0-2.0); Eosinophils # (auto) 0.3 10 ^3/uL (0-0.8); Eosinophils % (auto) 4.2 % (0.0-7.0); Hematocrit 29.7 % (41.0-53.0); Hemoglobin 9.9 g/dL (13.5-17.5); Lymphocytes # (auto) 1.2 10 ^3/uL (0.4-5.4); Lymphocytes % (auto) 19.4 % (10.0-50.0); Mean Corpuscular Hemoglobin 24.9 pg (28.0-32.0); Mean Corpuscular Hgb Conc. 33.3 g/dL (32.0-36.0); Mean Corpuscular Volume 74.8 fL (80.0-100.0); Monocytes # (auto) 0.7 10 ^3/uL (0-1.3); Monocytes % (auto) 10.8 % (0.0-12.0); Neutrophils % (auto) 64.9 % (37.0-80.0); Nucleated Red Blood Cells % 0.1 %; Platelet Count (auto) 169 10^3/uL (140-450); Red Blood Cells 3.97 10^6/uL (4.5-5.90); Red Cell Distribution Width 16.7 % (11.8-14.3); White Blood Cell 6.1 10^3/uL (4.4-10.8)
[2025-03-10 07:09] LABS: Chloride 100 mmol/L (98-107); Potassium 4.6 mmol/L (3.5-5.1); Sodium 143 mmol/L (136-145)
[2025-03-10 07:10] LABS: Anion Gap 14 (5-15); Carbon Dioxide 29 mmol/L (20-31)
[2025-03-10 07:11] LABS: Calcium 8.8 mg/dL (8.7-10.4)
[2025-03-10 07:33] LABS: Blood Urea Nitrogen 67 mg/dL (9-23); Glucose 111 mg/dL (74-106)
--- NOTE | 2025-03-10 10:33 | DVHPN2 ---
Progress Note - Dictate Date Seen: Mar 10, 2025 Has the PT tested + for MRSA If YES, has PT been informed?: No Medical Necessity Reason Pt with a Central, PICC or Fol: No Subjective Feels weak No new complaints vital signs Vital Sign Date Time Temp Pulse Resp B/P (MAP) Pulse Ox O2 Delivery O2 Flow Rate FiO2 03/10/25 09:58 97 Room Air* 0 21 03/10/25 09:00 97.6 71 17 148/81 (103) 97.6 Total Intake and Output 03/09/25 03/09/25 03/10/25 14:59 22:59 06:59 Intake Total 350 ml 1000 ml Output Total 225 ml Balance 125 ml 1000 ml medications Current Medications Medications Dose Ordered Sig/Kaylie Route Start Time Stop Time Status Last Admin Dose Admin Carvedilol 6.25 mg Q12HR PO 03/08/25 10:00 03/10/25 08:31 6.25 MG Pantoprazole Sodium 40 mg DAILY IV 03/09/25 10:00 Sevelamer HCl 1,600 mg TIDWM PO 03/08/25 08:00 03/08/25 17:55 1,600 MG objective GENERAL: The patient is an adult gentleman who appears to be chronically ill, in no acute distress. Alert and oriented x 3. HEENT: Unremarkable. NECK: No jugular venous distention. No palpable thyroid or lymphadenopathy. LUNGS: Clear to auscultation. CARDIOVASCULAR: Reveals regular rate. There is 2/6 systolic murmur in all auscultatory areas. ABDOMEN: Soft, distended. There is ascites. I could not palpate organomegaly. EXTREMITIES: Show no clubbing, cyanosis, no edema. NEUROLOGIC: Nonfocal. laboratory and microbiology Laboratory Tests 03/10/25 06:20 Test 03/10/25 06:20 Range/Units Serum Glucose 111 H 74-106 mg/dL Problem List ASSESSMENT AND PLAN: * End-stage renal disease with no electrolyte imbalances. * Anemia of renal disease. Hemoglobin is at target range. * Hypertension. Blood pressure seems to be relatively well controlled. * Recurrent ascites. Needs paracentesis. Continue HD on MWF schedule Plan discussed with: Patient NYDIA CATES MD Mar 10, 2025 10:33
--- NOTE | 2025-03-10 13:56 | DVHDS2 ---
Discharge Summary Date of Admission Mar 08, 2025 at 03:55 Date of Discharge: Mar 10, 2025 Labs/Diagnostic Data: Laboratory Results Test 03/10/25 06:20 03/09/25 07:45 03/09/25 07:05 03/08/25 06:10 White Blood Count 6.1 10^3/uL (4.4-10.8) Red Blood Count 3.97 10^6/uL (4.5-5.90) Hemoglobin 9.9 g/dL (13.5-17.5) Hematocrit 29.7 % (41.0-53.0) Mean Corpuscular Volume 74.8 fL (80.0-100.0) Mean Corpuscular Hemoglobin 24.9 pg (28.0-32.0) Mean Corpuscular Hemoglobin Concent 33.3 g/dL (32.0-36.0) Red Cell Distribution Width 16.7 % (11.8-14.3) Platelet Count 169 10^3/uL (140-450) Mean Platelet Volume 7.5 fL (6.9-10.8) Neutrophils (%) (Auto) 64.9 % (37.0-80.0) Lymphocytes (%) (Auto) 19.4 % (10.0-50.0) Monocytes (%) (Auto) 10.8 % (0.0-12.0) Eosinophils (%) (Auto) 4.2 % (0.0-7.0) Basophils (%) (Auto) 0.7 % (0.0-2.0) Neutrophils # (Auto) 4.0 10 ^3/uL (1.6-8.6) Lymphocytes # (Auto) 1.2 10 ^3/uL (0.4-5.4) Monocytes # (Auto) 0.7 10 ^3/uL (0-1.3) Eosinophils # (Auto) 0.3 10 ^3/uL (0-0.8) Basophils # (Auto) 0 10 ^3/uL (0-0.2) Nucleated Red Blood Cells 0.1 % Sodium Level 143 mmol/L (136-145) Potassium Level 4.6 mmol/L (3.5-5.1) Chloride Level 100 mmol/L (98-107) Carbon Dioxide Level 29 mmol/L (20-31) Anion Gap 14 (5-15) Blood Urea Nitrogen 67 mg/dL (9-23) Creatinine 9.51 mg/dL (0.700-1.30) Glomerular Filtration Rate Calc 6 mL/min (>90) BUN/Creatinine Ratio 7.0 (10.0-20.0) Serum Glucose 111 mg/dL (74-106) Calcium Level 8.8 mg/dL (8.7-10.4) Urine Color Light-yellow (Yellow) Urine Clarity Clear (Clear) Urine pH 8.0 (5.0-9.0) Urine Specific [place] 1.012 (1.001-1.035) Urine Protein 3+ (Negative) Urine Ketones Negative (Negative) Urine Blood Trace /uL (Negative) Urine Nitrite Negative (Negative) Urine Bilirubin Negative (Negative) Urine Urobilinogen Normal mg/dL (Negative) Urine Leukocyte Esterase Negative /uL (Negative) Urine RBC 2 /hpf (0 - 3) Urine Microscopic WBC 1 /HPF (0-3) Urine Squamous Epithelial Cells Few /hpf (<5) Urine Bacteria None seen /hpf (None Seen) Urine Glucose 3+ mg/dL (Normal) Urine Opiates Screen Neg (NEGATIVE) Urine Fentanyl Screen Neg (NEGATIVE) Urine Barbiturates Screen Neg (NEGATIVE) Urine Phencyclidine Screen Neg (NEGATIVE) Urine Amphetamines Screen Neg (NEGATIVE) Urine Benzodiazepines Screen Neg (NEGATIVE) Urine Cocaine Screen Neg (NEGATIVE) Urine Cannabinoids Screen Neg (NEGATIVE) Iron Level 30 ug/dL (65-175) Total Iron Binding Capacity 330 ug/dL (250-425) Percent Iron Saturation 9.1 % (20-55) Ferritin 28.1 ng/mL (22-322) Test 03/08/25 01:55 03/07/25 23:15 Phosphorus Level 6.3 mg/dL (2.4-5.1) Troponin I High Sensitivity 34 ng/L (</=54) Prothrombin Time 13.2 sec (9.3-11.8) Prothrombin Time INR 1.28 (0.9-1.15) Magnesium Level 2.5 mg/dL (1.6-2.6) Total Bilirubin 0.6 mg/dL (0.2-1.0) Aspartate Amino Transferase (AST) 13 U/L (13-40) Alanine Aminotransferase (ALT) < 9 U/L (7-40) Alkaline Phosphatase 108 U/L (46-116) B-Type Natriuretic Peptide 1701.15 pg/mL (0-100) Total Protein 7.5 g/dL (5.7-8.2) Albumin 4.4 g/dL (3.2-4.8) Lipase 52 U/L (12-53) Other Laboratory Tests 03/10/25 06:20 Brief Hx & Hospital Course: Patient is a 45-year-old male with a past medical history of end-stage renal disease on dialysis (Wednesday at [facility]), hypertension, fatty liver presented to the ED with a chief complaint of abdominal distention. Patient reports he had massive abdominal distention which was drained about 2-1/2 weeks ago at [facility] following which he was discharged. He reports the abdominal distention started area, radiating but now he wanted to get earlier evaluation so that he does not reach a point where he feels short of breath. Patient denied any chest pain. Reported mild shortness of breath but he is saturating more than 95% on room air. Past medical history: As per HPI Past surgical history: Testicular surgery, cyst incision and drainage Social history: Patient denies smoking, alcohol, drug use and lives at home Home medications: Hydralazine 25 t.i.d. with the patient is not taking, carvedilol 6.25 mg b.i.d., sevelamer Hospital course: Patient was admitted at the line of possible systolic heart failure and volume overload/ascites. Nephrology consulted, performed the analysis and took out 3.5 L. ultrasound mediated paracentesis performed, and drained 250 mL. Home medication including sevelamer and carvedilol were continued during hospitalization. During hospital course electrolyte abnormalities/hypokalemia were treated medically. On 03/10/2025, the patient was feeling better since admission. Abdominal discomfort, shortness of breaths and chest discomfort improved. Discharge plan discussed with the patient and discharged home. Discharge plan: Follow up with the PCP within 1 week of the discharge Follow up with the Nephrology and maintenance hemodialysis Continue home meds Condition at Discharge: Good Final Diagnosis/Problems List Possible Acute systolic heart failure, likely due to volume/ESRD ESRD, on maintenance hemodialysis (Tuesdays//Wednesday) Diabetes type 2Mild anemia, likely due to ESRDRecurrent ascites, likely due to ESRD HypertensionHyperphosphatemia Discharge Disposition: Home Discharge Instruct/Medications Diet: Renal Activity: No Restrictions, As Tolerated Follow Up/Referral: HD MWF per schedule dc clinic 1 week Discharge Statement: "Patient was advised to return to the ER or call 911 if any headaches, dizziness, shortness of breath, chest pain, abdominal pain, bleeding, fevers, or worsening of medical condition. Patient was counseled about treatment plan, medications, possible side effects, patientverbalized understanding. All questions were answered to the best of my ability. This discharge took greater then 30 minutes in planning, reviewing documentation, counseling the patient, and discussing with other team members." ASSESSMENT ASSESSMENT Assessment Possible Acute systolic heart failure, likely due to volume/ESRD ESRD, on maintenance hemodialysis (Tuesdays//Wednesday) Diabetes type 2Mild anemia, likely due to ESRDRecurrent ascites, likely due to ESRD HypertensionHyperphosphatemia Date of Service: Mar 10, 2025 Billing Provider: YANDEL ALCARAZ MD Common Visit Codes: [id number] DISCH DAY >30min YANDEL ALCARAZ MD Mar 10, 2025 13:56
--- NOTE | 2025-03-10 15:03 | DVHSR ---
APPROVED REPORT EXAM: Two-dimensional and M-mode echocardiogram with Doppler and color Doppler. Blood Pressure: 154/92 mmHg INDICATION HF RISK FACTORS Height: 70, Weight: 210 DIMENSIONS LVDd5.6 (3.8-5.7cm)LA (2D)5.0 (1.9-4.0cm)Aortic Root3.8 (2.0-3.7cm) LVDs4.3 (2.5-4.0cm)LA (MM) (1.9-4.0cm)Aortic Cusp Exc1.9 (1.5-2.0cm) EF (%) 47.0 (55-70%)Rt. Atrium5.4 (1.9-4.0cm)Asc. Aorta cm IVSd1.5 (0.7-1.1cm)RV (D) (1.8-2.4cm) PWd1.8 (0.7-1.1cm) Mitral Valve MitralMitral Stenosis E wave1.00m/sMV Mean GR.mmHg A wave0.28m/sMV Peak GR.70mmHg E/A ratio3.62D MVAcm2 DECEL [id number] 1/2 Timems Aortic Valve Aortic ValveAortic Stenosis V10.91m/Nelson Mean GR.3mmHg V21.06m/Nelson Peak GR.5mmHg LVOT Diameter2.0 (1.8-2.4cm)Doppler AVA2.70cm2 Pulmonic Valve V20.72m/s Tricuspid Valve TR Velocity2.61m/s [id number] Conclusion Sinus rhythm. Biatrial enlargement. Concentric LVH. LV enlargement. Aortic root enlargement. Valves. We structurally normal. Left ventricular systolic performance is diminished. EF is approximately 25-30% with global hypokine sis. Diminished RV function. Mild mitral insufficiency. Mild pulmonic insufficiency. No intracardiac masses thrombi or vegetations. No pericardial effusion.
== END 2025-03-10 17:40 | disposition home or self-care (01) | DRG 291 ==
LOC: ER 22:47 → OVERFLOW 03-08 03:55 → TELE-WESTW 03-08 16:09
PROVIDERS: ADMIT Student in an Organized Health Care Education/Training Program; ATTEND Emergency Medicine
DX: I13.2 Hypertensive heart and chronic kidney disease with heart failure and with stage 5 chronic kidney disease, or end stage renal disease (principal); I50.21 Acute systolic (congestive) heart failure; N18.6 End stage renal disease; R18.8 Other ascites; D68.9 Coagulation defect, unspecified; K76.9 Liver disease, unspecified; R16.0 Hepatomegaly, not elsewhere classified; E11.22 Type 2 diabetes mellitus with diabetic chronic kidney disease; K76.0 Fatty (change of) liver, not elsewhere classified; F41.9 Anxiety disorder, unspecified; E87.6 Hypokalemia; D63.1 Anemia in chronic kidney disease; E83.39 Other disorders of phosphorus metabolism; Z88.0 Allergy status to penicillin; Z79.899 Other long term (current) drug therapy; Z99.2 Dependence on renal dialysis
CPT/HCPCS: 36415; 71045; 76705; 80048; 80053; 80307; 81001; 82728; 83540; 83550; 83690; 83735; 83880; 84100; 84484; 85025; 85610; 90935; 93306; 94640; G0378; J2470

== ENCOUNTER 2025-04-16 14:27 | Emergency (ER) | payer MEDICARE ==
[~2025-04-16] VITALS: Ht 180.3 cm; Wt 88.8 kg
[2025-04-16 15:38] LABS: Hematocrit 35.4 % (41.0-53.0); Hemoglobin 11.4 g/dL (13.5-17.5); Mean Corpuscular Hemoglobin 23.2 pg (28.0-32.0); Mean Corpuscular Volume 72.0 fL (80.0-100.0); Nucleated Red Blood Cells % 0.0 %
--- NOTE | 2025-04-16 15:49 | ED.PDOC ---
GI ASSESSMENT HPI Comments Patient is a 45-year-old male with a past medical history of type 2 diabetes mellitus, end-stage renal disease on dialysis presented to the ED with a chief complaint of abdominal distention. Patient reports that in the last month and a half use got paracentesis twice with 2.5 L removed the 1st time and 2 L removed the 2nd time about 2 weeks ago. Since the last paracentesis patient to reports he was feeling well and in the last few days he has again started feeling nauseous, loss of appetite, abdominal distention but denies any shortness of breath, blood in the stool or blood in vomitus. Chief Complaint: Abdominal Pain Time Seen by MD: 15:02 Reviewed Notes: Nurses Notes, Medications, Allergies Allergies: Coded Allergies: Penicillins (Verified Allergy, Unknown, UNKNOWN, 03/08/25) Uncoded Allergies: contrast dye (Allergy, Unknown, 03/08/25) Home Meds No Active Prescriptions or Reported Meds Mode of Arrival: Ambulatory Past Medical History PAST MEDICAL HISTORY: Anxiety, DM, ESRD, HTN, Liver Surgical History (Other): Left upper arm AV fistula Family History Family History: Unknown Social History Smoker: Non-Smoker Alcohol: Denies ETOH Use Drugs: Denies Drug Use Lives In: Home Constitutional: reports: fatigue EENTM: denies: blurred vision, double vision, ear bleeding, ear discharge, ear drainage, ear pain, ear ringing, eye pain, eye redness, hearing loss, mouth pain, mouth swelling, nasal discharge, nose bleeding, nose congestion, nose pa in, photophobia, tearing, throat pain, throat swelling, voice changes, others Respiratory: denies: cough, hemoptysis, orthopnea, SOB at rest, shortness of breath, SOB with excertion, stridor, wheezing, others Cardiovascular: denies: chest pain, dizzy spells, diaphoresis, Dyspnea on exertion, edema, irregular heart beat, left arm pain, lightheadedness, palpitations, PND, syncope, others Gastrointestinal: reports: abdomen distended, nausea Genitourinary: denies: burning, dysuria, flank pain, frequency, hematuria, incontinence, penile discharge, penile sore, pain, testicle pain, testicle swelling, urgency, others Neurological: denies: dizziness, fainting, headache, left sided numbness, left sided weakness, numbness, paresthesia, pre-existing deficit, right sided numbness, right sided weakness, seizure, speech problems, tingling, tremors, weakness, others Musculoskeletal: denies: back pain, gout, joint pain, joint swelling, muscle pain, muscle stiffness, neck pain, others Integumetry: denies: bruises, change in color, change in hair/nails, dryness, laceration, lesions, lumps, rash, wounds, others Allergic/Immunocompromised: denies: Difficulty Healing, Frequent Infections, Hives, Itching, others Hematologic/Lymphatic: denies: anemia, blood clots, easy bleeding, easy bruising, swollen glands, others Endocrine: denies: excessive hunger, excessive sweating, excessive thirst, excessive urination, flushing, intolerance to cold, intolerance to heat, unexplained weight gain, unexplained weight loss, others Psychiatric: denies: anxiety, bipolar disorder, depression, hopeless, panic disorder, schizophrenia, sleepless, suicidal, others Physical Exam General Appearance: Normal HEENT: PERRL/EOMI, Pharynx Normal Neck: Full Range of Motion, Non-Tender, Normal Inspection Respiratory: No Accessory Muscle Use, No Respiratory Distress, Normal Breath Sounds Cardiovascular: No Edema, No JVD, No Murmur, Normal Peripheral Pulses, Regular Rate/Rhythm Breast Exam: Deferred Gastrointestinal: Distended, No Organomegaly, Non Tender, No Pulsatile Mass, Normal Bowel Sounds, Soft Genitalia: Deferred Pelvic: Deferred Rectal: Deferred Extremities: Normal inspection, Normal range of motion, Non-tender, No pedal edema Neurologic: Alert, medical records clerk II-XII nml as Tested, No Motor Deficits, No Sensory Deficits Cerebellar Function: Normal Reflexes: NOT DONE Skin: Dry, Normal Color, Warm Peripheral Pulses: 2+ dorsalis pedis (R), 2+ dorsalis pedis (L), 2+ Radial (R), 2+ Radial (L) Lymphatic: No Adenopathy Was a procedure done? Was a procedure done?: No GI differential Dx Differential Diagnosis: Gastritis/PUD Other Differential Diagnosis ascites, jojo on ckd, X-Ray, Labs, Meds, VS Vital Signs Date Time Temp Pulse Resp B/P (MAP) Pulse Ox O2 Delivery O2 Flow Rate FiO2 04/16/25 18:41 98.6 84 17 155/86 (109) 97 98.6 04/16/25 14:59 97.8 95 16 167/98 (121) 98 97.8 Lab Test 04/16/25 15:27 Range/Units White Blood Count 7.9 4.4-10.8 10^3/uL Red Blood Count 4.92 4.5-5.90 10^6/uL Hemoglobin 11.4 L 13.5-17.5 g/dL Hematocrit 35.4 L 41.0-53.0 % Mean Corpuscular Volume 72.0 L 80.0-100.0 fL Mean Corpuscular Hemoglobin 23.2 L 28.0-32.0 pg Mean Corpuscular Hemoglobin Concent 32.2 32.0-36.0 g/dL Red Cell Distribution Width 17.4 H 11.8-14.3 % Platelet Count 229 140-450 10^3/uL Mean Platelet Volume 7.3 6.9-10.8 fL Neutrophils (%) (Auto) 70.5 37.0-80.0 % Lymphocytes (%) (Auto) 14.1 10.0-50.0 % Monocytes (%) (Auto) 10.9 0.0-12.0 % Eosinophils (%) (Auto) 3.7 0.0-7.0 % Basophils (%) (Auto) 0.8 0.0-2.0 % Neutrophils # (Auto) 5.6 1.6-8.6 10 ^3/uL Lymphocytes # (Auto) 1.1 0.4-5.4 10 ^3/uL Monocytes # (Auto) 0.9 0-1.3 10 ^3/uL Eosinophils # (Auto) 0.3 0-0.8 10 ^3/uL Basophils # (Auto) 0.1 0-0.2 10 ^3/uL Nucleated Red Blood Cells 0.0 % Prothrombin Time 12.4 H 9.3-11.8 sec Prothrombin Time INR 1.19 H 0.9-1.15 Activated Partial Thromboplast Time 26.5 24.5-34.5 SEC Sodium Level 142 136-145 mmol/L Potassium Level 4.6 3.5-5.1 mmol/L Chloride Level 98 98-107 mmol/L Carbon Dioxide Level 31 20-31 mmol/L Anion Gap 13 5-15 Blood Urea Nitrogen 75 H 9-23 mg/dL Creatinine 10.30 *H 0.700-1.30 mg/dL Glomerular Filtration Rate Calc 6 >90 mL/min BUN/Creatinine Ratio 7.3 L 10.0-20.0 Serum Glucose 111 H 74-106 mg/dL Calcium Level 8.6 L 8.7-10.4 mg/dL Total Bilirubin 0.6 0.2-1.0 mg/dL Aspartate Amino Transferase (AST) 10 L 13-40 U/L Alanine Aminotransferase (ALT) < 9 7-40 U/L Alkaline Phosphatase 105 46-116 U/L Total Protein 7.6 5.7-8.2 g/dL Albumin 4.5 3.2-4.8 g/dL Patient is a 45-year-old male with a past medical history of type 2 diabetes, end-stage renal disease on dialysis presented to the ED with a abdominal distention and complains of nausea, abdominal discomfort, loss of appetite. On physical examination shifting dullness was not present, patient did not have any signs of shortness of breath, abdominal tenderness/guarding/rebound tenderness. Initial labs including CBC, BMP, urinalysis were ordered along with the abdominal ultrasound to check for the amount of ascitic fluid. Patient had elevated creatinine with the underlying end-stage renal disease, abdominal ultrasound showed trace ascites. Patient will need further inpatient management for end-stage renal disease and highly elevated creatinine levels, trace ascites with a further evaluation for chronic liver disease. Patient agrees with the management. Time of 1ST Reevaluation: 16:27 Reevaluation 1ST: Unchanged Patient Education/Counseling: Other (eloped) Family Education/Counseling: No Family Present SEPSIS Sepsis Screen Date sepsis recognized/suspect: Apr 16, 2025 Time Sepsis recognized/suspect: 1446 Recent Procedure: No On Antibiotic Therapy: No Respiratory Rate >20: No Heart Rate >90: Yes Temp<36 C (96.8 F) or >38.3 C: No SBP <90 or MAP <65 mmHG: No New Acute Mental Status Change: No Is the patient on CPAP, BIPAP,: No Physician Orders Urinalysis (04/16/25 15:17) Heplock Iv (04/16/25 15:17) Abdomen Limited (04/16/25 15:17) Vital Signs Date Time Temp Pulse Resp B/P (MAP) Pulse Ox O2 Delivery O2 Flow Rate FiO2 04/16/25 18:41 98.6 84 17 155/86 (109) 97 98.6 04/16/25 14:59 97.8 95 16 167/98 (121) 98 97.8 Laboratory Tests Test 04/16/25 15:27 White Blood Count 7.9 10^3/uL (4.4-10.8) Departure 1 Departure Time of Disposition: 18:52 Impression: Primary Impression: Abdominal pain Additional Impressions: End stage renal disease on dialysis Ascites Disposition: ADMITTED INPATIENT Condition: Stable e-Prescriptions No Active Prescriptions or Reported Meds Critical Care Note Critical Care Time?: No Stability Stability form required: No Heart Score Heart Score: Heart Score Response (Comments) Value History N/A 0 EKG N/A 0 Age N/A 0 Risk Factors N/A 0 Troponin N/A 0 Total 0 MOMO WOLFF RESIDENT Apr 16, 2025 15:49
[2025-04-16 15:54] LABS: Albumin 4.5 g/dL (3.2-4.8); Alkaline Phosphatase 105 U/L (46-116); Anion Gap 13 (5-15); BUN/Creatinine Ratio 7.3 (10.0-20.0); Carbon Dioxide 31 mmol/L (20-31); Potassium 4.6 mmol/L (3.5-5.1); Sodium 142 mmol/L (136-145); Total Protein 7.6 g/dL (5.7-8.2)
[2025-04-16 15:55] LABS: Alanine Aminotransferase < 9 U/L (7-40); Bilirubin, Total 0.6 mg/dL (0.2-1.0); Blood Urea Nitrogen 75 mg/dL (9-23); Calcium 8.6 mg/dL (8.7-10.4); Chloride 98 mmol/L (98-107); Glucose 111 mg/dL (74-106)
[2025-04-16 16:19] LABS: INR 1.19 (0.9-1.15); Partial Thromboplastin Time 26.5 SEC (24.5-34.5); Prothrombin Time 12.4 sec (9.3-11.8)
--- NOTE | 2025-04-16 16:27 | DVH ---
Limited Abdominal Ultrasound - Ascites Evaluation Clinical History: abd distention, ascites Comparison: US ABDOMEN LIMITED on DOS: 03/07/25 Technique/Findings/Impression: Limited sonographic evaluation of the abdomen was performed to assess for ascites. There is trace ascites detected.
[2025-04-16] MEDS: PANTOPRAZOLE 40 MG/10 ML VIAL INJ IV ONE (18:24)
[2025-04-16 18:41] VITALS: BP 155/86; PULSE 84; RESP 17; TEMP 98.6; O2SAT 97
[2025-04-16] MEDS ORDERED: DOCUSATE SOD 100 MG CAP PO PRN (19:45)
[2025-04-16] MEDS ORDERED: ONDANSETRON HCL 4 MG/2 ML VIAL IV PRN (19:45)
[2025-04-16] MEDS ORDERED: ACETAMINOPHEN 325 MG TAB PO PRN (19:45)
[2025-04-16] MEDS ORDERED: hydrALAZINE HCL 20 MG/ML VL IV PRN (19:45)
[2025-04-16] MEDS ORDERED: DEXTROSE (50%) 50ML SYRG IV PRN (19:45)
[2025-04-16] MEDS ORDERED: HYDROcodone-ACET 5/325MG TAB PO PRN (19:45)
[2025-04-16] MEDS ORDERED: ACCU-CHEK COMFORT CURVE STRIP VI SCH (22:00)
[2025-04-16] MEDS ORDERED: InsuLIN REG 1unit/0.01ml Soln (100units/ml) SC SCH (22:00)
[2025-04-16] MEDS ORDERED: SODIUM CHLOR 0.9% PF (SALINE LOCK) 10ML VIAL/SYR IV SCH (22:00)
[2025-04-16] MEDS ORDERED: CARVEDILOL 3.125 MG TAB PO SCH (22:00)
[2025-04-17] MEDS ORDERED: SEVELAMER 800 MG TAB PO SCH (08:00)
[2025-04-17] MEDS ORDERED: B-COMPLEX W/ C & FOLIC ACID(NEPHROVITE TAB) PO SCH (10:00)
== END 2025-04-16 20:27 | disposition left against medical advice (07) ==
LOC: ER 14:34
DX: I12.0 Hypertensive chronic kidney disease with stage 5 chronic kidney disease or end stage renal disease (principal); E11.22 Type 2 diabetes mellitus with diabetic chronic kidney disease; N18.6 End stage renal disease; R18.8 Other ascites; R10.9 Unspecified abdominal pain; F41.9 Anxiety disorder, unspecified; Z88.0 Allergy status to penicillin; Z99.2 Dependence on renal dialysis; Z98.890 Other specified postprocedural states
CPT/HCPCS: 36415; 76705; 80053; 85025; 85610; 85730